=== PATIENT | female | born 1965 | race Caucasian/White ===

== ENCOUNTER 2017-03-12 09:59 | Day surgery (SDC) | payer OTHER ==
[2017-03-12 10:18] VITALS: BMI 25.4
[2017-03-12] MEDS ORDERED: Lactated Ringer's 500 ML IV ONE (12:00)
--- NOTE | 2017-03-12 12:04 | CP.SDSHP ---
Same Day Surgery H & P - History Proposed Procedure: colonoscopy Pre-Op Diagnosis: colon cancer screening - Allergies Allergies: Allergies No Known Allergies Allergy (Verified 03/12/17 10:16) - Physical Exam General Appearance: nl Vital Signs: Vital Signs 03/12/17 03/12/17 10:25 10:46 Temperature 97.5 F L Pulse Rate 74 74 Respiratory 19 Rate Blood Pressure 128/85 O2 Sat by Pulse 98 Oximetry Mental Status: Alert & Oriented x3 Neuro: WNL Heart: WNL Lungs: WNL GI: WNL - {Optional Preform as Required} Abdomen: WNL - Impression Impression: colon ca screen Pt. Evaluated Today:Candidate for Anesthesia & Procedure: Yes - Date & Time Date: 03/12/17 Time: 12:03 Short Stay Discharge - Short Stay Discharge Admitting Diagnosis/Reason for Visit: ENCOUNTER FOR SCREENING FOR MALIGNANT NEOPLASM OF Disposition: HOME/ ROUTINE
[2017-03-12] MEDS ORDERED: Propofol 10 mg/ml Inj (20 ML) ONE ×2 (12:06→12:16)
[2017-03-12 12:18] VITALS: O2SAT 100
[2017-03-12 13:15] VITALS: TEMP 96
[2017-03-12 14:29] VITALS: BP 124/70; PULSE 77; RESP 20
== END 2017-03-12 13:45 | disposition home or self-care (01) ==
LOC: C.ENDO 09:59
PROVIDERS: ATTEND Internal Medicine
DX: D12.3 Benign neoplasm of transverse colon (principal)
CPT/HCPCS: 45388; 82948; 88305; J2704; J7120